=== PATIENT | male | born 2000 | race African-American/Black ===

== ENCOUNTER 2022-04-22 01:34 | Emergency (ER) | payer SELFPAY ==
[~2022-04-22] VITALS: Ht 170.2 cm; Wt 63.5 kg
--- NOTE | 2022-04-22 03:42 | NUR ---
Dr. Dorado at bedside for MSE.
[2022-04-22 04:57] VITALS: BP 125/62
--- NOTE | 2022-04-22 04:57 | NUR ---
Patient discharged to home in stable condition. Written and verbal after care instructions given. Patient verbalizes understanding of instructions. Stressed follow up or return to ER for worsening s/s.
== END 2022-04-22 04:59 | disposition home or self-care (01) ==
LOC: ER 01:40
DX: S93.402A Sprain of unspecified ligament of left ankle, initial encounter (principal); X50.9XXA Other and unspecified overexertion or strenuous movements or postures, initial encounter; Y92.89 Other specified places as the place of occurrence of the external cause
CPT/HCPCS: 73610; A4663